=== PATIENT | male | born 1970 | race Caucasian/White ===

== ENCOUNTER → 2016-11-09 | Outpatient (CLI) | payer OTHER, SELFPAY ==
[~2016-11-09] MED LIST: CARAFATE1 GM/10 ML PO; CYMBALTA30 MG PO; CYMBALTA60 MG PO; DOXYCYCLINE HY100 M2 PO; IBUPROFEN600 MG PO; KEPPRA 500 MG500 MG PO; NEURONTIN 100100 MG PO; PROTONIX40 MG PO; VALIUM 5 MG TAB5 MG PO; VITAMIN D250000 UNIT PO
== END ==
LOC: KOH-I 12:33
DX: R10.2 Pelvic and perineal pain (principal); M54.9 Dorsalgia, unspecified; R31.0 Gross hematuria; N20.1 Calculus of ureter
CPT/HCPCS: 74176

== ENCOUNTER → 2016-12-06 | Outpatient (CLI) | payer OTHER ==
[2016-12-06 14:32] LABS: HEMOGLOBIN 18.5 gm/dl (14.0-17.5); RED BLOOD COUNT 5.62 M/UL (4.20-5.50); WHITE BLOOD COUNT 10.9 K/UL (4.5-11.0)
[2016-12-06 14:59] LABS: BUN/CREATININE RATIO 14 (0-10)
== END ==
LOC: LAB 13:52
PROVIDERS: Nurse Practitioner Family
DX: R53.83 Other fatigue (principal); E53.8 Deficiency of other specified B group vitamins; E55.9 Vitamin D deficiency, unspecified; M10.9 Gout, unspecified; E66.9 Obesity, unspecified; I77.6 Arteritis, unspecified
CPT/HCPCS: 36415; 80048; 80061; 80076; 82607; 84443; 84550; 85025; 86141; 86235; 86431; 86812

== ENCOUNTER → 2016-12-24 | Outpatient (CLI) | payer OTHER | LOC: HEART 5 08:29 | DX: I73.9 Peripheral vascular disease, unspecified (principal); M79.671 Pain in right foot; M79.672 Pain in left foot; R20.9 Unspecified disturbances of skin sensation ==

== ENCOUNTER 2017-01-12 04:07 | Emergency (ER) | payer OTHER ==
[2017-01-12 05:16] LABS: HEMOGLOBIN 17.7 gm/dl (14.0-17.5); RED BLOOD COUNT 5.37 M/UL (4.20-5.50); WHITE BLOOD COUNT 12.8 K/UL (4.5-11.0)
[2017-01-12 05:37] LABS: BUN/CREATININE RATIO 18 (0-10)
[2017-03-29] MEDS ORDERED: IBUPROFEN600 MG PO (05:09)
[2017-03-29] MEDS ORDERED: VITAMIN D250000 UNIT PO (05:09)
[2017-03-29] MEDS ORDERED: NEURONTIN 100100 MG PO (05:11)
[2017-03-31] MEDS ORDERED: CARAFATE1 GM/10 ML PO (10:46)
[2017-03-31] MEDS ORDERED: PROTONIX40 MG PO (10:47)
[2017-03-31] MEDS ORDERED: CYMBALTA30 MG PO (10:58)
[2017-05-17] MEDS ORDERED: CYMBALTA60 MG PO (16:08)
[2017-05-17] MEDS ORDERED: VITAMIN D250000 UNIT PO (16:13)
[2017-05-20] MEDS ORDERED: VALIUM 5 MG TAB5 MG PO (10:55)
[2017-05-20] MEDS ORDERED: DOXYCYCLINE HY100 M2 PO (10:56)
[2017-05-20] MEDS ORDERED: KEPPRA 500 MG500 MG PO (10:57)
== END 2017-01-12 06:45 | disposition home or self-care (01) ==
LOC: ER1 04:07
PROVIDERS: Student in an Organized Health Care Education/Training Program
DX: N20.1 Calculus of ureter (principal); Z90.49 Acquired absence of other specified parts of digestive tract; Z87.891 Personal history of nicotine dependence
CPT/HCPCS: 36415; 80053; 81001; 85025; 87086; 96374; 96375; 99284; J1885; J2405; J7030

== ENCOUNTER 2017-01-14 12:44 | Emergency (ER) | payer OTHER ==
[2017-01-14 13:25] LABS: RED BLOOD COUNT 5.17 M/UL (4.20-5.50); WHITE BLOOD COUNT 10.2 K/UL (4.5-11.0)
[2017-01-14 13:51] LABS: BUN/CREATININE RATIO 14 (0-10)
[2017-03-29] MEDS ORDERED: VITAMIN D250000 UNIT PO (05:09)
[2017-03-29] MEDS ORDERED: IBUPROFEN600 MG PO (05:09)
[2017-03-29] MEDS ORDERED: NEURONTIN 100100 MG PO (05:11)
[2017-03-31] MEDS ORDERED: CARAFATE1 GM/10 ML PO (10:46)
[2017-03-31] MEDS ORDERED: PROTONIX40 MG PO (10:47)
[2017-03-31] MEDS ORDERED: CYMBALTA30 MG PO (10:58)
[2017-05-17] MEDS ORDERED: CYMBALTA60 MG PO (16:08)
[2017-05-17] MEDS ORDERED: VITAMIN D250000 UNIT PO (16:13)
[2017-05-20] MEDS ORDERED: VALIUM 5 MG TAB5 MG PO (10:55)
[2017-05-20] MEDS ORDERED: DOXYCYCLINE HY100 M2 PO (10:56)
[2017-05-20] MEDS ORDERED: KEPPRA 500 MG500 MG PO (10:57)
== END 2017-01-14 15:03 | disposition home or self-care (01) ==
LOC: ER1 12:44
PROVIDERS: Physician Assistant
DX: N20.1 Calculus of ureter (principal); Z90.49 Acquired absence of other specified parts of digestive tract; Z87.891 Personal history of nicotine dependence; Z79.899 Other long term (current) drug therapy; Z91.041 Radiographic dye allergy status
CPT/HCPCS: 36415; 80053; 81001; 85025; 87086; 96361; 96374; 96375; 99284; J1885; J2405

== ENCOUNTER 2017-01-23 18:43 | Emergency (ER) | payer OTHER ==
[2017-01-23 19:33] LABS: HEMOGLOBIN 16.3 gm/dl (14.0-17.5); RED BLOOD COUNT 4.99 M/UL (4.20-5.50); WHITE BLOOD COUNT 10.7 K/UL (4.5-11.0)
[2017-01-23 19:53] LABS: BUN/CREATININE RATIO 14 (0-10)
[2017-03-29] MEDS ORDERED: VITAMIN D250000 UNIT PO (05:09)
[2017-03-29] MEDS ORDERED: IBUPROFEN600 MG PO (05:09)
[2017-03-29] MEDS ORDERED: NEURONTIN 100100 MG PO (05:11)
[2017-03-31] MEDS ORDERED: CARAFATE1 GM/10 ML PO (10:46)
[2017-03-31] MEDS ORDERED: PROTONIX40 MG PO (10:47)
[2017-03-31] MEDS ORDERED: CYMBALTA30 MG PO (10:58)
[2017-05-17] MEDS ORDERED: CYMBALTA60 MG PO (16:08)
[2017-05-17] MEDS ORDERED: VITAMIN D250000 UNIT PO (16:13)
[2017-05-20] MEDS ORDERED: VALIUM 5 MG TAB5 MG PO (10:55)
[2017-05-20] MEDS ORDERED: DOXYCYCLINE HY100 M2 PO (10:56)
[2017-05-20] MEDS ORDERED: KEPPRA 500 MG500 MG PO (10:57)
== END 2017-01-23 21:05 | disposition home or self-care (01) ==
LOC: ER1 18:43
PROVIDERS: Emergency Medicine
DX: N20.1 Calculus of ureter (principal)
CPT/HCPCS: 36415; 74000; 80053; 81001; 83690; 85025; 96374; 96375; 99284; J1885; J2270; J2405; J7030

== ENCOUNTER 2017-05-24 19:44 | Emergency (ER) | payer OTHER ==
[2017-05-24 20:25] LABS: HEMOGLOBIN 17.4 gm/dl (14.0-17.5); RED BLOOD COUNT 5.38 M/UL (4.20-5.50); WHITE BLOOD COUNT 10.9 K/UL (4.5-11.0)
[2017-05-24 20:42] LABS: BUN/CREATININE RATIO 11 (0-10)
== END 2017-05-24 23:13 | disposition home or self-care (01) ==
LOC: ER1 19:44
PROVIDERS: Family Medicine
DX: R56.9 Unspecified convulsions (principal); R51 Headache; R55 Syncope and collapse; Z88.3 Allergy status to other anti-infective agents
CPT/HCPCS: 36415; 80053; 82550; 82553; 83874; 84484; 85025; 93005; 96361; 96374; 96375; 99284; J1200; J1885; J2765

== ENCOUNTER 2021-02-24 18:05 | Emergency (ER) | payer OTHER ==
[~2021-02-24 18:05] MED LIST changes: +HYDROCHLOROTHIA25 MG PO
[2021-02-24 21:05] LABS: HEMOGLOBIN 18.7 gm/dl (14.0-17.5); RED BLOOD COUNT 5.57 M/UL (4.20-5.50); WHITE BLOOD COUNT 13.1 K/UL (4.5-11.0)
[2021-02-24 21:23] LABS: BUN/CREATININE RATIO 16 (0-10)
[2021-02-24] MEDS ORDERED: HYDROCODON-ACE1 EAC4 PO (23:52)
[2021-02-24] MEDS ORDERED: FLOMAX 0.4 MG0.4 MG PO (23:58)
[2021-02-24] MEDS ORDERED: ZOFRAN ODT 4 MG4 MG PO (23:58)
[2021-03-12] MEDS ORDERED: TORADOL 10 MG T10 MG PO (13:43)
[2021-03-12] MEDS ORDERED: GLUCOPHAGE 500500 MG PO (13:45)
[2021-03-12] MEDS ORDERED: CRESTOR5 MG PO (13:46)
== END 2021-02-25 00:02 | disposition home or self-care (01) ==
LOC: ER1 18:05
PROVIDERS: Physician Assistant Medical
DX: N20.1 Calculus of ureter (principal); E78.5 Hyperlipidemia, unspecified; E11.9 Type 2 diabetes mellitus without complications; F17.210 Nicotine dependence, cigarettes, uncomplicated; Z90.49 Acquired absence of other specified parts of digestive tract
CPT/HCPCS: 80053; 81001; 85025; 87086; 99284

== ENCOUNTER → 2021-03-04 | Outpatient (CLI) | payer OTHER ==
[~2021-03-04] MED LIST changes: +CRESTOR5 MG PO; +FLOMAX 0.4 MG0.4 MG PO; +GLUCOPHAGE 500500 MG PO; +HYDROCODON-ACE1 EAC4 PO; +TORADOL 10 MG T10 MG PO; +ZOFRAN ODT 4 MG4 MG PO
== END ==
LOC: EXRD 13:53
DX: N20.1 Calculus of ureter (principal)
CPT/HCPCS: 74018

== ENCOUNTER 2021-03-08 09:59 | Emergency (ER) | payer OTHER ==
[~2021-03-08 09:59] MED LIST changes: -CRESTOR5 MG PO; -GLUCOPHAGE 500500 MG PO; -TORADOL 10 MG T10 MG PO
[2021-03-08 10:45] LABS: HEMOGLOBIN 18.7 gm/dl (14.0-17.5); RED BLOOD COUNT 5.53 M/UL (4.20-5.50); WHITE BLOOD COUNT 12.5 K/UL (4.5-11.0)
[2021-03-08 11:02] LABS: BUN/CREATININE RATIO 15 (0-10)
[2021-03-08] MEDS ORDERED: FLOMAX 0.4 MG0.4 MG PO (11:39)
[2021-03-12] MEDS ORDERED: TORADOL 10 MG T10 MG PO (13:43)
[2021-03-12] MEDS ORDERED: GLUCOPHAGE 500500 MG PO (13:45)
[2021-03-12] MEDS ORDERED: CRESTOR5 MG PO (13:46)
== END 2021-03-08 11:50 | disposition home or self-care (01) ==
LOC: ER1 09:59
PROVIDERS: Physician Assistant
DX: N20.1 Calculus of ureter (principal); Z87.442 Personal history of urinary calculi; Z90.49 Acquired absence of other specified parts of digestive tract; Z88.5 Allergy status to narcotic agent; Z91.040 Latex allergy status; F17.210 Nicotine dependence, cigarettes, uncomplicated
CPT/HCPCS: 80053; 81001; 85025; 87086; 96374; 96375; 99284; J1885; J2270; J2405

== ENCOUNTER → 2021-03-12 | Day surgery (SDC) | payer OTHER ==
[~2021-03-12] MED LIST changes: +CRESTOR5 MG PO; +GLUCOPHAGE 500500 MG PO; +TORADOL 10 MG T10 MG PO
[2021-03-24 22:11] LABS: CA OXALATE DIHYDRATE 70 % (.); CALCIUM OXALATE MONOHYDRATE 20 % (.); COLOR Tan (.); HYDROXYAPATITE 10 % (.); SIZE 4x4 mm (.); WEIGHT 43 mg (.)
== END | disposition home or self-care (01) ==
LOC: OR 12:20
PROVIDERS: Urology
DX: N20.1 Calculus of ureter (principal); N23 Unspecified renal colic; I10 Essential (primary) hypertension; M45.9 Ankylosing spondylitis of unspecified sites in spine; F41.9 Anxiety disorder, unspecified; F31.9 Bipolar disorder, unspecified; M54.12 Radiculopathy, cervical region; E11.42 Type 2 diabetes mellitus with diabetic polyneuropathy; K21.9 Gastro-esophageal reflux disease without esophagitis; M10.9 Gout, unspecified; E78.5 Hyperlipidemia, unspecified; M54.16 Radiculopathy, lumbar region; M48.062 Spinal stenosis, lumbar region with neurogenic claudication; G43.B0 Ophthalmoplegic migraine, not intractable; E66.9 Obesity, unspecified; M19.90 Unspecified osteoarthritis, unspecified site; D75.1 Secondary polycythemia; F44.5 Conversion disorder with seizures or convulsions; G47.30 Sleep apnea, unspecified; E53.8 Deficiency of other specified B group vitamins; E55.9 Vitamin D deficiency, unspecified; Z88.8 Allergy status to other drugs, medicaments and biological substances; Z68.34 Body mass index [BMI] 34.0-34.9, adult; Z87.891 Personal history of nicotine dependence; Z87.442 Personal history of urinary calculi
CPT/HCPCS: 82962; C1769; C1894; C2617; J1956; J2001; J2704; J3010; J7030; J7120

== ENCOUNTER → 2021-03-19 | Outpatient (CLI) | payer OTHER | LOC: EXRD 11:30 | DX: Z87.442 Personal history of urinary calculi (principal); R14.3 Flatulence | CPT/HCPCS: 74018 ==

== ENCOUNTER → 2021-04-09 | Outpatient (CLI) | payer OTHER | LOC: KOH-I 14:53 | DX: R10.30 Lower abdominal pain, unspecified (principal); N20.9 Urinary calculus, unspecified; M54.5 Low back pain; Z87.442 Personal history of urinary calculi | CPT/HCPCS: 74176 ==

== ENCOUNTER → 2021-06-23 | Outpatient (CLI) | payer OTHER, BC | LOC: KOH-I 15:33 → MRI 06-29 13:00 → KOH-I 06-29 13:00 | DX: M50.123 Cervical disc disorder at C6-C7 level with radiculopathy (principal); S16.1XXA Strain of muscle, fascia and tendon at neck level, initial encounter; M54.2 Cervicalgia; V89.2XXA Person injured in unspecified motor-vehicle accident, traffic, initial encounter | CPT/HCPCS: 72141 ==

== ENCOUNTER 2021-08-07 19:56 | Observation (INO) | payer OTHER ==
[~2021-08-07] VITALS: Ht 188 cm; Wt 118.0 kg
[2021-08-07 20:41] LABS: HEMOGLOBIN 18.5 gm/dl (14.0-17.5); RED BLOOD COUNT 5.6 M/UL (4.20-5.50); WHITE BLOOD COUNT 11.3 K/UL (4.5-11.0)
[2021-08-07 21:03] LABS: BUN/CREATININE RATIO 16 (0-10)
[2021-08-08] MEDS ORDERED: VOLTAREN EC 7575 MG PO (01:06)
[2021-08-08] MEDS ORDERED: CYCLOBENZAPRINE10 MG PO (01:06)
[2021-08-08 06:42] LABS: HEMOGLOBIN 16.6 gm/dl (14.0-17.5); RED BLOOD COUNT 5.25 M/UL (4.20-5.50); WHITE BLOOD COUNT 12.2 K/UL (4.5-11.0)
[2021-08-08 07:09] LABS: BUN/CREATININE RATIO 21 (0-10)
[2021-08-09] MEDS ORDERED: LOPRESSOR 25 MG25 MG PO (16:00)
[2021-08-10] MEDS ORDERED: ASPIRIN EC81 MG PO (09:33)
[2021-08-10] MEDS ORDERED: NITROSTAT0.4 MG SL (09:33)
[2021-08-10] MEDS ORDERED: LOPRESSOR 25 MG25 MG PO (09:34)
== END 2021-08-10 10:50 | disposition home or self-care (01) ==
LOC: ER1 19:56 → CDU 22:43 → MED SURG 4 22:43
PROVIDERS: Internal Medicine; Physician Assistant Medical; ADMIT Internal Medicine
DX: R07.89 Other chest pain (principal); R00.2 Palpitations; E11.9 Type 2 diabetes mellitus without complications; I10 Essential (primary) hypertension; E78.5 Hyperlipidemia, unspecified; D45 Polycythemia vera; G89.29 Other chronic pain; M54.9 Dorsalgia, unspecified; G62.9 Polyneuropathy, unspecified; R06.02 Shortness of breath; R11.0 Nausea; F17.210 Nicotine dependence, cigarettes, uncomplicated; Z88.5 Allergy status to narcotic agent; Z91.041 Radiographic dye allergy status; Z82.49 Family history of ischemic heart disease and other diseases of the circulatory system; Z72.89 Other problems related to lifestyle; Z91.02 Food additives allergy status; Z20.822 Contact with and (suspected) exposure to COVID-19
CPT/HCPCS: ECHO; 71045; 78452; 80048; 80053; 82550; 82553; 83036; 83874; 84484; 85025; 93005; 93017; 93270; 93306; 96372; 99285; A9502; G0378; J1650; U0002

== ENCOUNTER 2021-08-12 02:41 | Inpatient (IN) | payer OTHER ==
[~2021-08-12] VITALS: Ht 188 cm; Wt 113.4 kg
[~2021-08-12 02:41] MED LIST changes: +ASPIRIN EC81 MG PO; +CYCLOBENZAPRINE10 MG PO; +LOPRESSOR 25 MG25 MG PO; +NITROSTAT0.4 MG SL; +VOLTAREN EC 7575 MG PO
[2021-08-12 03:19] LABS: RED BLOOD COUNT 5.94 M/UL (4.20-5.50); WHITE BLOOD COUNT 14.6 K/UL (4.5-11.0)
[2021-08-12 03:23] LABS: HEMOGLOBIN 19.8 gm/dl (14.0-17.5)
[2021-08-12 03:44] LABS: BUN/CREATININE RATIO 13 (0-10)
[2021-08-12] MEDS ORDERED: METOPROLOL TART25 MG PO (09:48)
[2021-08-12 10:05] LABS: RED BLOOD COUNT 5.4 M/UL (4.20-5.50); WHITE BLOOD COUNT 12.5 K/UL (4.5-11.0)
[2021-08-12 10:07] LABS: HEMOGLOBIN 17.8 gm/dl (14.0-17.5)
[2021-08-12 10:24] LABS: BUN/CREATININE RATIO 15 (0-10)
--- NOTE | 2021-08-12 19:24 | NUR ---
right tr band removed with no s/sx of bleeding, no pain and restricted arm band placed. patient aware of the education restrictions provided r/t right arm
--- NOTE | 2021-08-12 23:47 | NUR ---
TR BAND WAS REMOVED BY DAYSHIFT RN AT 1915 ON 08/12/21. PRIMARY RN ON NIGHTSHIFT CHECKED SITE AT 1925, 1944, 2007, 2019, 2099, 2134, 2229, AND 2330. EACH TIME OF ASSESSMENT TO RIGHT RADIAL SITE DRESSING WAS CLEAN, DRY, AND INTACT WITH NO S/S OF BLEEDING NOTED. WCTM PER PROTOCOL.
[2021-08-13 06:51] LABS: HEMOGLOBIN 17.9 gm/dl (14.0-17.5); RED BLOOD COUNT 5.52 M/UL (4.20-5.50)
[2021-08-13 07:00] LABS: WHITE BLOOD COUNT 18.3 K/UL (4.5-11.0)
[2021-08-13 07:21] LABS: BUN/CREATININE RATIO 17 (0-10)
[2021-08-13] MEDS ORDERED: ATORVASTATIN CA20 MG PO (10:09)
[2021-08-13] MEDS ORDERED: ACCUPRIL 20 MG20 MG PO (10:09)
== END 2021-08-13 12:46 | disposition home or self-care (01) | DRG 287 ==
LOC: ER1 02:41 → CDU 04:27 → M/S 16:28
PROVIDERS: Physician Assistant; ADMIT Internal Medicine
PROC: 4A023N7 Measurement of Cardiac Sampling and Pressure, Left Heart, Percutaneous Approach (ICD-10-PCS; principal; 2021-08-12)
PROC: B2111ZZ Fluoroscopy of Multiple Coronary Arteries using Low Osmolar Contrast (ICD-10-PCS; 2021-08-12)
DX: I25.110 Atherosclerotic heart disease of native coronary artery with unstable angina pectoris (principal); I10 Essential (primary) hypertension; E78.5 Hyperlipidemia, unspecified; Z20.822 Contact with and (suspected) exposure to COVID-19; G89.29 Other chronic pain; F17.210 Nicotine dependence, cigarettes, uncomplicated; D45 Polycythemia vera; E11.40 Type 2 diabetes mellitus with diabetic neuropathy, unspecified; E78.00 Pure hypercholesterolemia, unspecified; G43.909 Migraine, unspecified, not intractable, without status migrainosus; Z83.3 Family history of diabetes mellitus; Z87.828 Personal history of other (healed) physical injury and trauma; Z82.49 Family history of ischemic heart disease and other diseases of the circulatory system; Z90.49 Acquired absence of other specified parts of digestive tract; Z88.8 Allergy status to other drugs, medicaments and biological substances; Z91.041 Radiographic dye allergy status; Z88.5 Allergy status to narcotic agent; Z91.018 Allergy to other foods; Z98.890 Other specified postprocedural states
CPT/HCPCS: 36415; 71045; 71275; 80048; 80053; 80061; 82550; 82553; 82962; 83874; 83880; 84484; 85025; 85379; 85610; 85730; 93005; 99152; 99285; C1769; C1894; J1200; J1644; J2250; J2930; J3010; J7040; Q9967; U0002

== ENCOUNTER → 2021-09-02 | Outpatient (CLI) | payer OTHER ==
[~2021-09-02] MED LIST changes: +ACCUPRIL 20 MG20 MG PO; +ATORVASTATIN CA20 MG PO; +METOPROLOL TART25 MG PO
== END ==
LOC: KOH-I 11:05
DX: M51.16 Intervertebral disc disorders with radiculopathy, lumbar region (principal)
CPT/HCPCS: 72148

== ENCOUNTER 2022-04-23 21:31 | Emergency (ER) | payer OTHER | END 2022-04-23 23:20 | disposition left against medical advice (07) | LOC: ER1 21:31 | DX: Z53.21 Procedure and treatment not carried out due to patient leaving prior to being seen by health care provider (principal) ==